=== PATIENT | male | born 1955 | race Caucasian/White ===

== ENCOUNTER → 2022-07-04 15:28 | Outpatient (CLI) | payer OTHER, SELFPAY ==
[2022-07-11 14:12] LABS: Hydroxyapatite 100 % (.); Size <1 mm (.)
== END ==
PROVIDERS: PCP Family Medicine; Visit Provider Specialist
DX: N20.0 Calculus of kidney (principal); Z85.51 Personal history of malignant neoplasm of bladder; Z87.442 Personal history of urinary calculi; Z80.42 Family history of malignant neoplasm of prostate
CPT/HCPCS: 81002; 82365; 99215